=== PATIENT | male | born 1945 | race Caucasian/White ===

== ENCOUNTER 2023-10-16 16:33 | Emergency (ER) | payer MEDICARE, BC, SELFPAY ==
[2023-10-16 16:57] VITALS: BP 129/74; PULSE 97; RESP 16; TEMP 37.3; O2SAT 96
--- NOTE | 2023-10-16 18:05 | ED.MALEGU ---
HPI - Male Genitourinary General Chief complaint: Urogenital-Male Stated complaint: UTI Time Seen by Provider: 10/16/23 18:05 Source: patient, RN notes reviewed and old records reviewed Mode of arrival: ambulatory Limitations: no limitations History of Present Illness HPI Narrative: 77-year-old male presents to the [facility] with concerns for a UTI. Patient reports for the last 1-2 weeks he has had just urinary frequency. Has a cardiac history, takes Lasix. Denies any other symptoms. No abdominal pain, burning. Has not contacted his primary or cardiac doctor. States ?thiey are off this week. ? Was concerned for UTI Onset (ago): week(s) (1-2) Associated symptoms: Reports denies other symptoms Related Data Home Medications Medication Instructions Recorded Confirmed amlodipine 5 mg tablet mg 10/16/23 atorvastatin 80 mg tablet mg 10/16/23 baclofen 10 mg tablet mg 10/16/23 clopidogrel 75 mg tablet mg 10/16/23 cyclosporine 0.05 % eye drops in a drp 10/16/23 10/16/23 dropperette furosemide 40 mg tablet mg 10/16/23 hydrochlorothiazide 25 mg tablet mg 10/16/23 hydroxyurea 500 mg capsule 10/16/23 losartan 100 mg tablet mg 10/16/23 potassium chloride 20 mEq meq PO 10/16/23 tablet,extended release(part/cryst) prednisone 20 mg tablet mg 10/16/23 Allergies Allergy/AdvReac Type Severity Reaction Status Date / Time No Known Allergies Allergy Verified 10/16/23 17:14 Review of Systems Review of Systems: All systems reviewed & are unremarkable except as noted in HPI and below Constitutional: Constitutional: Reports no additional constitutional complaints Eyes: Eyes: Reports no additional eye complaints ENT: Reports system reviewed and no additional complaints, except as documented Cardiovascular: Cardiovascular: Reports no additional cardiovascular complaints, Denies chest pain and Denies dyspnea Respiratory: Respiratory: Reports no additional respiratory complaints, Denies chest congestion, Denies cough and Denies dyspnea Gastrointestinal: Gastrointestinal: Reports no additional gastrointestinal complaints, Denies abdominal pain, Denies nausea and Denies vomiting Genitourinary: Genitourinary: Reports as per HPI Musculoskeletal: Musculoskeletal: Reports no additional musculoskeletal complaints Integumentary/Breasts: Skin/Breast: Reports system reviewed and no additional complaints, except as docu Neurologic: Reports system reviewed and no additional complaints, except as documented Psychiatric: Psychiatric: Reports no additional psychiatric complaints Allergic/Immunologic: Allergic/Immunologic: Reports no additional allergic/immunologic complaints PMF Past Medical History Medical History (Updated 10/17/23 @ 00:00 by Background Daemon) History of high blood pressure Comments At the time of my signature, I reviewed and agree with the nursing past medical, surgical, social, and family history. There is no relevant family history pertinent to the patient complaint. Exam Const: General: cooperative, healthy appearing, comfortable, no acute distress, well developed, alert and well nourished Nutritional Appearance: well nourished Orientation/consciousness: patient oriented x3 Limitations: no limitations HENMT: Head: normal to inspection Ears: hearing grossly normal bilaterally and external ears normal Face/Nose/Sinus: Normal external nose present, Normal nares present, Normal nasal mucous membranes and turbinates present, normal facial exam and face symmetric Face and sinus: normal facial exam and face symmetric Eyes: General: appearance normal, both eyes and all related structures Alignment and Position: alignment normal Periorbital: periorbital findings normal Pupils: Equal, round and reactive pupils present EOM: EOMs intact bilaterally Neck: Neck: normal visual inspection, full ROM, no lymphadenopathy and no meningeal signs Chest: Chest palpation & inspection: normal inspection of the
== END 2023-10-16 18:36 | disposition home or self-care (01) ==
PROVIDERS: Emergency Provider Nurse Practitioner; PCP Internal Medicine
DX: R35.0 Frequency of micturition (principal); Z79.899 Other long term (current) drug therapy
CPT/HCPCS: 81003; 87086; 87088; 99213; G0463

== ENCOUNTER 2024-06-07 15:51 | Outpatient (CLI) | payer MEDICARE, BC, SELFPAY ==
--- NOTE | ~2024-06-07 | CT_ITS ---
EXAMINATION: CT brain wo con DATE: 06/07/2024 17:17 INDICATION: Impaired functional mobility. Fall. Head injury. TECHNIQUE: Computed tomography (CT) of the head was performed without intravenous contrast. The mA wa s adjusted according to patient size. Iterative reconstruction technique was employed. The dose-lengt h product was 605.33 mGy-cm. COMPARISON: Head CT 03/01/2007 FINDINGS: There are old infarcts in the cerebellum bilaterally. There are scattered areas of low atte nuation in the cerebral white matter. There is no intracranial hemorrhage, acute infarction, or abnor mal intracranial mass lesion. The ventricles are normal in size. There is mucosal thickening in the p aranasal sinuses. The orbits are normal. The mastoid air cells are normal. There are changes of left- sided craniotomy. IMPRESSION: 1. Old infarcts in the cerebellum. 2. Mild nonspecific cerebral white matter disease, which likely represents chronic small vessel ische shae disease. Reviewed, dictated and finalized at location A. IMPRESSION: 1. Old infarcts in the cerebellum. 2. 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
== END 2024-06-07 15:52 | disposition home or self-care (01) ==
LOC: ANHIMG 16:00
PROVIDERS: PCP Internal Medicine; Visit Provider Internal Medicine
DX: S09.90XA Unspecified injury of head, initial encounter (principal); Z74.09 Other reduced mobility; Z86.79 Personal history of other diseases of the circulatory system; X58.XXXA Exposure to other specified factors, initial encounter; R90.82 White matter disease, unspecified
CPT/HCPCS: 70450